=== PATIENT | male | born 1965 | race Caucasian/White ===

== ENCOUNTER → 2022-07-16 | Outpatient (CLI) | payer BC | LOC: RAD 11:55 | PROVIDERS: ATTEND Internal Medicine | DX: J41.0 Simple chronic bronchitis (principal) | CPT/HCPCS: 71046 ==

== ENCOUNTER → 2024-02-29 | Outpatient (REF) | payer OTHER | LOC: CT 09:48 | PROVIDERS: ATTEND Internal Medicine | DX: Z80.1 Family history of malignant neoplasm of trachea, bronchus and lung (principal); F17.211 Nicotine dependence, cigarettes, in remission | CPT/HCPCS: 71250 ==